=== PATIENT | male | born 1960 | race Caucasian/White ===

== ENCOUNTER 2020-02-12 19:46 | Emergency (ER) | payer MEDICARE ==
[~2020-02-12] VITALS: Ht 182.9 cm; Wt 118.8 kg
[2020-02-12] MEDS ORDERED: LIDOcaine 1% w/epiNEPHrine 1:200,000 30ml vial SQ ONE (20:35)
[2020-02-12] MEDS ORDERED: TETanus/Pertussis (Acell)/Diphther VAC/PF (Tdap-Adult) 0.5ml syringe IMVAC ONE (20:35)
[2020-02-12 21:59] VITALS: BP 132/82
== END 2020-02-12 22:24 | disposition home or self-care (01) ==
LOC: ER 19:47
DX: S91.311A Laceration without foreign body, right foot, initial encounter (principal); L97.519 Non-pressure chronic ulcer of other part of right foot with unspecified severity; W27.2XXA Contact with scissors, initial encounter; Y93.89 Activity, other specified; Y92.89 Other specified places as the place of occurrence of the external cause; Y99.9 Unspecified external cause status
CPT/HCPCS: 12002; 90471; 90715; 99283